=== PATIENT | female | born 1950 ===

== ENCOUNTER 2022-10-22 13:47 | Observation (INO) | payer MEDICARE, SELFPAY ==
[2022-10-22] VITALS (14 sets, daily range): BP systolic 110–151; BP diastolic 50–67; PULSE 89–130; RESP 16–25; TEMP 37; O2SAT 95–100
--- NOTE | ~2022-10-22 | CT_ITS ---
EXAMINATION: CT brain wo con DATE: 10/22/2022 17:21 INDICATION: 2 episodes of gradual vision loss. Weakness. TECHNIQUE: Computed tomography (CT) of the head was performed without intravenous contrast. The mA wa s adjusted according to patient size. Iterative reconstruction technique was employed. Exam dose: 60 5.33 mGy-cm total exam DLP. COMPARISON: None FINDINGS: No intracranial mass lesion or hemorrhage or recent cerebrovascular accident. There is prominent central and cortical cerebral atrophy. Prominent carotid siphon internal carotid artery calcifications. Bilateral vertebral artery calcifica tions. There is nonspecific diminished attenuation cerebral white matter, likely due to chronic small vessel ischemic changes. Chronic lacunar infarcts of the left basal ganglia and periventricular area. No subdural or epidural hematoma. No fracture or bone destruction of the cranial vault. The mastoid air cells and included paranasal si nuses are normally developed and aerated. IMPRESSION: Prominent central and cortical cerebral atrophy Cerebral atherosclerosis and chronic small vessel ischemic changes of cerebral white matter and chron ic lacunar infarcts of left basal ganglia and periventricular Reviewed, dictated and finalized at [facility]. Reviewed, dictated and finalized at [facility] IMPRESSION: Prominent central and cortical cerebral atrophy Cerebral atherosclerosis and chronic small vessel ischemic changes of cerebral white matter and chronic lacunar infarcts of left basal ganglia and periventric ular
--- NOTE | ~2022-10-22 | XR_ITS ---
XR chest 2V DATE: 10/22/2022 17:27 INDICATION: Syncope, weakness TECHNIQUE: AP and lateral views COMPARISON: None FINDINGS: Heart size is within normal range. Is aortic arch calcification. No hilar or mediastinal en largement. No pulmonary infiltrate or consolidation, pleural effusion or pulmonary vascular congestio n or pneumothorax. IMPRESSION: No active cardiopulmonary disease Reviewed, dictated and finalized at location [facility]. ERY PAIRER
--- NOTE | ~2022-10-22 | CT_ITS ---
EXAMINATION: CTA BRAIN/CAROTID DATE: 10/22/2022 19:34 INDICATION: Binocular painless vision loss TECHNIQUE: Computed tomographic angiography (CTA) of the head and neck was performed with 100 mL Omni paque-350 intravenous contrast. Multiplanar reconstructions and maximum intensity projection 3D-recon structions of the carotid arteries and of the intracranial arteries were created by the technologist on a separate workstation. Precontrast CT of the head was also obtained. Automated exposure control and iterative reconstruction technique were employed.The dose-length product was 3358.47 mGy-cm. COMPARISON: None. FINDINGS: Carotid arteries: Small amount of nonhemodynamically significant atherosclerotic plaque at the normal caliber or aortic arch and origin of the great vessels arising from the arch. There is 50% stenosis of the right carot id bulb relative to normal distal artery lumen diameter (NASCET criteria). There is 70% stenosis of t he left carotid bulb relative to normal distal artery lumen diameter. Small amount of nonhemodynamica lly significant atherosclerotic plaque at the origins of the bilateral vertebral arteries which are c odominant. The visualized cervical soft tissues and superior mediastinum are unremarkable. Mild perip heral septal line thickening which could be due to atelectasis or minimal pulmonary edema. 4 mm pleur al-based nodule at the periphery of the right upper lobe. Moderate lower cervical spondylosis. Intracranial arteries Extensive nonhemodynamically significant atherosclerotic plaque at the bilateral carotid siphons. Min imal atherosclerotic plaque at the intracranial right vertebral artery without significant stenosis. There is no hemodynamically significant stenosis in the vertebral, basilar and internal carotid arter ies. Vertebral arteries are codominant. There are no aneurysms identified. Both A1 and P1 segments a re patent. There appears be a tiny patent anterior communicating artery. Cerebral arterial arborizati on appears symmetric. No abnormally enhancing brain lesions. Small old lacunar infarcts at the left b kevin ganglia and left frontal lobe osborne radiata. Changes of bilateral intraocular lens replacement. IMPRESSION: 1. 70% stenosis of the right carotid bulb relative to normal distal artery lumen diameter (NASCET cri teria). 2. 50% stenosis of the left carotid bulb relative to normal distal artery lumen diameter. 3. No intracranial hemodynamically significant arterial stenosis or aneurysm. Reviewed, dictated and finalized at location [facility]. SUPERVISOR IMPRESSION: 1. 70% stenosis of the right carotid bulb relative to normal distal artery lume n diameter (NASCET criteria). 2. 50% stenosis of the left carotid bulb relative to normal distal artery lumen diameter. 3. No intracranial hemodynamically significant arterial stenosis or aneurysm.
--- NOTE | ~2022-10-22 | MR_ITS ---
EXAMINATION: MR brain/brain stem wo con DATE: 10/23/2022 08:16 INDICATION: Transient painless bilateral vision loss TECHNIQUE: Magnetic resonance imaging (MRI) of the brain and brainstem was performed without intraven ous contrast. Sequences included sagittal and axial T1-weighted SE, axial diffusion-weighted FS SE, a xial T2*-weighted GRE, axial 3D SWAN, axial T2-weighted FLAIR, and axial T2-weighted FSE. Apparent di ffusion coefficient (ADC) maps were created. COMPARISON: Head CT dated 10/22/2022 FINDINGS: Encephalomalacia consistent with small old infarct at the left basal ganglia involving the posterior lentiform nucleus and extending cephalad along the left frontal lobe osborne radiata. Additional small old infarct along a gyrus of the right parietal lobe. There are no areas of restricted diffusion to suggest acute infarction. No intracranial hemorrhage or abnormal intracranial mass lesion. There are scattered areas of nonspecific increased T2-weighted signal intensity in the cerebral white matter, p redominantly involving the deep and periventricular white matter. There are no intraparenchymal signa l abnormalities seen on the other pulse sequences. Symmetric prominence of the sulci consistent with mild age-appropriate diffuse cerebral volume loss. The ventricles are symmetric and normal in size. T here are no abnormal extra-axial fluid collections. Flow voids are seen in the cerebral arteries on t he T2-weighted sequences consistent with their expected patency. Changes of bilateral intraocular jonnie s replacement. Mild mucosal thickening the bilateral ethmoid sinuses. Small right mastoid effusion. IMPRESSION: 1. No acute infarct or other acute intracranial process. 2. Small old infarcts involving the left basal ganglia, left frontal lobe osborne radiata and a gyrus in the right parietal lobe. 3. Additional mild scattered white matter T2 hyperintensity which is within normal for age and consis tent with chronic small vessel ischemic disease. Reviewed, dictated and finalized at location [facility]. ERATIVE EDUCATION COORDINATOR IMPRESSION: 1. No acute infarct or other acute intracranial process. 2. Small old infarcts involving the left basal ganglia, left frontal lobe coron a radiata and a gyrus in the right parietal lobe. 3. Additional mild scattered white matter T2 hyperintensity which is within nor mal for age and consistent with chronic small vessel ischemic disease.
--- NOTE | 2022-10-22 14:00 | ECG_ITS ---
Measurements Intervals [place] Rate: 88 P: 32 [place]: 154 QRS: -31 QRSD: 91 T: 5 QT: 359 QTc: 436 Interpretive Statements SINUS RHYTHM BASELINE ARTIFACT LEFT AXIS DEVIATION VOLTAGE CRITERIA FOR LVH LOW-VOLTAGE QRS PERICARDIAL LEADS ABNORMAL ECG NO PREVIOUS ECG AVAILABLE FOR COMPARISON Electronically Signed On 10-24-2022 15:35:37 EMBOSSING MACHINE OPERATOR by David Peck M.D.
[2022-10-22 14:15] LABS: Basophils Absolute Auto 0.1 K/mm3 (0.0-0.1); Basophils Percent Auto 0.7 % (0.2-1.2); Eosinophils Percent Auto 0.1 % (0-4.4); Hemoglobin 9.8 g/dL (12.0-15.0); Immature Granulocyte Absolute 0.13 K/mm3 (0.00-0.031); Immature Granulocyte Percent A 0.9 % (0-0.5); Lymphocytes Absolute Auto 1.18 K/mm3 (0.9-3.2); Lymphocytes Percent Auto 8.6 % (18.3-44.2); Mean Corpuscular HGB Conc 30.6 g/dl (32-36); Mean Corpuscular Hemoglobin 30.7 pg (26-34); Mean Corpuscular Volume 100.3 fl (80-100); Mean Platelet Volume 8.6 fl (7.4-10.4); Monocytes Absolute Auto 0.5 K/mm3 (0.1-0.6); Monocytes Percent Auto 3.5 % (2.6-8.5); Neutrophils Absolute Auto 11.8 K/mm3 (1.3-6.7); Neutrophils Percent Auto 86.2 % (45.5-73.1); Platelet Count Result 702 k/mm3 (150-375); Red Blood Count 3.19 M/mm3 (4.2-5.4); Red Cell Distribution Width 15.5 % (11.5-14.5); White Blood Count 13.7 K/mm3 (4.5-10.0)
[2022-10-22 14:25] LABS: Alanine Aminotransferase 21 U/L (6-35); Albumin Level 4.3 g/dL (3.5-5.1); Alkaline Phosphatase 123 U/L (38-126); Anion Gap 8 mmol/L (8-16); Aspartate Amino Transferase 37 U/L (14-36); Bilirubin,Total 0.4 mg/dL (0.2-1.3); Blood Urea Nitrogen 50 mg/dL (7-17); Calcium 9.3 mg/dL (8.4-10.2); Carbon Dioxide 34 mmol/L (22-30); Chloride 95 mmol/L (98-107); Estimated CRCL calculation 36 ml/min; Estimated Glomerular Filt Rate 32; Glucose 185 mg/dL (65-110); Potassium 4.5 mmol/L (3.4-5.0); Sodium 137 mmol/L (137-145)
--- NOTE | 2022-10-22 17:10 | ED.DIZZY ---
HPI - Dizziness General Chief Complaint: Syncope <Sofiya Pitts PA-C - Last Filed: 10/23/22 02:55> Stated Complaint: syncopal episode <Sofiya Pitts PA-C - Last Filed: 10/23/22 02:55> Time Seen by Provider: 10/22/22 16:52 <Sofiya Pitts PA-C - Last Filed: 10/23/22 02:55> History of Present Illness HPI Narrative: Patient is a 72-year-old female with a history of COPD, PE, previous CVA sent here from her rehab facility for evaluation of binocular painless vision loss, lightheadedness and weakness. Patient states that she was standing doing therapy when she felt lightheaded and lost vision in both of her eyes gradually. Patient states that she sat down with improvement of the lightheadedness but the bilateral visual changes remained for about 30 minutes. Patient states that her symptoms went away after sitting for prolonged period of time. She had a similar episode 5 days ago. Denies syncope, head injury, unilateral weakness, chest pain. She is at the rehab facility currently due to leg weakness, pain and pulmonary embolism. She does have a history of previous stroke x 2. Currently on Eliquis, also being treated with steroids for COPD exacerbation. <Sofiya Pitts PA-C - Last Filed: 10/23/22 02:55> Related Data Home Medications: Home Medications Medication Instructions Recorded Confirmed Lactobacillus 1 cap PO DAILY 10/20/22 10/23/22 acidophilus-Bifidobac.animalis 2.5 billion cell capsule (Daily Probiotic) acetaminophen 325 mg tablet 325 mg PO BID PRN Pain 10/20/22 10/23/22 (Tylenol) clopidogrel 75 mg tablet 75 mg PO DAILY 10/20/22 10/23/22 diphenhydramine 25 2 tablet PO HS PRN Sleep 10/20/22 10/23/22 mg-acetaminophen 500 mg tablet (Tylenol PM Extra Strength) docusate sodium 100 mg capsule 100 mg PO DAILY 10/20/22 10/23/22 (Dulcolax Stool Softener (docusate)) furosemide 40 mg tablet 40 mg PO BID 10/20/22 10/23/22 levothyroxine 150 mcg tablet 150 mcg PO DAILY 10/20/22 10/23/22 methylprednisolone 4 mg tablet 8 mg PO DAILY PRN Pain 10/20/22 10/23/22 metolazone 2.5 mg tablet 2.5 mg PO DAILY 10/20/22 10/23/22 metoprolol succinate 25 mg 25 mg PO DAILY 10/20/22 10/23/22 tablet,extended release 24 hr multivitamin-ferrous 1 tablet PO DAILY 10/20/22 10/23/22 fumarate-folic acid 18 mg-400 mcg tablet ropinirole 0.5 mg tablet 0.5 mg PO BID 10/20/22 10/23/22 sacubitril 24 mg-valsartan 26 mg 0.5 tablet PO BID 10/20/22 10/23/22 tablet (Entresto) simvastatin 40 mg tablet 40 mg PO DAILY 10/20/22 10/23/22 gabapentin 100 mg capsule 100 mg PO TID 10/23/22 10/23/22 <Sofiya Pitts PA-C - Last Filed: 10/23/22 02:55> Allergies/Adverse Reactions: Allergies Allergy/AdvReac Type Severity Reaction Status Date / Time aspirin Allergy Other Verified 10/22/22 22:41 atorvastatin Allergy Muscle Verified 10/22/22 22:41 Spasms bumetanide Allergy Other Verified 10/22/22 22:41 celecoxib Allergy Other Verified 10/22/22 22:41 dexamethasone Allergy Other Verified 10/22/22 22:41 hydrochlorothiazide Allergy Other Verified 10/22/22 22:41 levofloxacin Allergy Hives Verified 10/22/22 22:41 meloxicam Allergy Other Verified 10/22/22 22:41 omeprazole Allergy Other Verified 10/22/22 22:41 Penicillins Allergy Hives Verified 10/22/22 22:41 prednisone Allergy Anaphylaxis Verified 10/22/22 22:41 torsemide Allergy Other Verified 10/22/22 22:41 acetaminophen [From Percocet] AdvReac Nausea and Verified 10/22/22 22:41 Vomiting benzonatate AdvReac Shakiness Verified 10/22/22 22:41 buspirone AdvReac Nausea and Verified 10/22/22 22:41 Vomiting doxycycline AdvReac Vomiting Verified 10/22/22 22:41 oxycodone [From Percocet] AdvReac Nausea and Verified 10/22/22 22:41 Vomiting procaine AdvReac Vomiting Verified 10/22/22 22:41 tetracycline AdvReac Nausea and Verified 10/22/22 22:41 Vomiting Tetracyclines AdvReac Vomiting Verified
[2022-10-22] MEDS: ALBUTEROL SULFATE NEB 2.5 MG/3 ML INH 5 MG INHALATION (17:26)
[2022-10-22] MEDS: SODIUM CHLORIDE 0.9% IV 1,000 ML 999 ML IV CONT (17:40)
[2022-10-22] MEDS: SODIUM CHLORIDE 0.9% IV 1,000 ML 100 ML IV CONT (23:00)
[2022-10-22 23:01] LABS: INR 1.9; Prothrombin Time 20.9 Seconds (11.1-14.7)
[2022-10-22 23:02] LABS: Partial Thromboplastin Time 34.7 SECONDS (22.3-36.8)
[2022-10-22 23:32] LABS: Influenza A QL RT-PCR Negative (Negative); Influenza B QL RT-PCR Negative (Negative); SARS-CoV-2 RNA PCR Negative
--- NOTE | 2022-10-22 23:38 | ADMGEN ---
This patient, Imelda Aleman, was admitted to 2 Medical Room 242-01. Patient/family oriented to hospital policies and general routines including ID bracelet, bed and alarms, visiting hours, pain management, procedures, bathroom and other care routines, personal items, smoking policy, room service/diet, and visiting hours. Information on how to activate the Rapid Response Team has been discussed. Patient/Family are encouraged to report perceived risks to care and to ask questions if they do not understand what they are told or what they should do.
[2022-10-23] VITALS (9 sets, daily range): BP systolic 109–130; BP diastolic 52–64; PULSE 80–86; RESP 16; TEMP 36.3–36.9; O2SAT 91–97; BMI 46.0
[2022-10-23] MEDS: LEVOTHYROXINE SODIUM 150 MCG TABLET PO (06:51)
[2022-10-23] MEDS: SACUBITRIL/VALSARTAN 12-13 MG TABLET 1 TAB PO ×2 (09:46→18:19)
[2022-10-23] MEDS: CLOPIDOGREL BISULFATE 75 MG TABLET PO (09:46)
[2022-10-23] MEDS: FUROSEMIDE 40 MG TABLET PO ×2 (09:47→18:19)
[2022-10-23] MEDS: MULTIVITAMINS /C LUTEIN (CENTRUM SILVER) TABLET *BKC 1 TAB PO (09:47)
[2022-10-23] MEDS: GABAPENTIN 100 MG CAPSULE PO ×2 (09:47→12:30)
[2022-10-23] MEDS: SIMVASTATIN 20 MG TABLET 40 MG PO (09:47)
[2022-10-23] MEDS: ACIDOPHILUS/BULGARICUS CHEWABLE TABLET 1 TABLET BY MOUTH (09:47)
[2022-10-23] MEDS: rOPINIRole HCL 0.5 MG TABLET PO ×2 (09:47→22:28)
[2022-10-23] MEDS: DOCUSATE SODIUM 100 MG CAPSULE PO (09:47)
[2022-10-23] MEDS: METOPROLOL SUCCINATE EXT REL 25 MG TABCR PO (09:47)
[2022-10-23] MEDS: ACETAMINOPHEN 325 MG TABLET 650 MG PO ×2 (09:49→22:27)
[2022-10-23] MEDS: metOLazone 2.5 MG TABLET PO (12:30)
--- NOTE | 2022-10-23 13:34 | PM.DS ---
DS: Admitting Diagnosis Discharge Date 10/23/2022 Admitting Diagnosis bilateral vision loss DS: Discharge Diagnosis Discharge Diagnosis (1) Binocular vision loss: Code(s): H54.3 - Unqualified visual loss, both eyes Status: Acute Assessment and Plan: ED-HPI Narrative: ? ? ? Patient is a 72-year-old female with a history of COPD, PE, previous CVA sent here from her rehab facility for evaluation of binocular painless vision loss, lightheadedness and weakness.? Patient states that she was standing doing therapy when she felt lightheaded and lost vision in both of her eyes gradually.? Patient states that she sat down with improvement of the lightheadedness but the bilateral visual changes remained for about 30 minutes.? Patient states that her symptoms went away after sitting for prolonged period of time.? She had a similar episode 5 days ago.? Denies syncope, head injury, unilateral weakness, chest pain.? She is at the rehab facility currently due to leg weakness, pain and pulmonary embolism.? She does have a history of previous stroke x 2.? Currently on Eliquis, also being treated with steroids for COPD exacerbation patient with history of CVA, and PE now presents with B/L vision loss to further evaluate will do CtA of head and neck as well as MRI of brain, will have PT OT evaluate the and further recommendation to follow. (2) Diabetes mellitus: Code(s): E11.9 - Type 2 diabetes mellitus without complications Status: Acute Assessment and Plan: will continue home regimen and monitor with sliding scale (3) Acute kidney injury superimposed on chronic kidney disease: Code(s): N17.9 - Acute kidney failure, unspecified; N18.9 - Chronic kidney disease, unspecified Status: Acute Assessment and Plan: patient on acute on chronic kidney disease will monitor kidney function DS: Summary Hospital Course Reason for hospitalization: ED-HPI Narrative: ? ? ? Patient is a 72-year-old female with a history of COPD, PE, previous CVA sent here from her rehab facility for evaluation of binocular painless vision loss, lightheadedness and weakness.? Patient states that she was standing doing therapy when she felt lightheaded and lost vision in both of her eyes gradually.? Patient states that she sat down with improvement of the lightheadedness but the bilateral visual changes remained for about 30 minutes.? Patient states that her symptoms went away after sitting for prolonged period of time.? She had a similar episode 5 days ago.? Denies syncope, head injury, unilateral weakness, chest pain.? She is at the rehab facility currently due to leg weakness, pain and pulmonary embolism.? She does have a history of previous stroke x 2.? Currently on Eliquis, also being treated with steroids for COPD exacerbation patient with history of CVA, and PE now presents with B/L vision loss to further evaluate will do CtA of head and neck as well as MRI of brain, will have PT OT evaluate the and further recommendation to follow. Hospital Course: patient presented with a bilateral vision loss, CTA of the head showed 1. 70% stenosis of the right carotid bulb relative to normal distal artery lumen diameter (NASCET criteria). 2. 50% stenosis of the left carotid bulb relative to normal distal artery lumen diameter. 3. No intracranial hemodynamically significant arterial stenosis or aneurysm. patient remains clinically stable symptoms have resolved to further evaluate patient had MRI of the brain did not show any acute infarct or other acute intracranial process. patient remains clinically stable and been participating in physical therapy her symptoms have resolved most likely patient had a TIA, will discharge the patient back to the rehab and patient will follow-up with her Neurologist. Time Spent with Patient Time attestation: Total time spent providing and/or coordinating discharge services: Exam Narrative: morbidly obese
--- NOTE | 2022-11-18 18:18 | PM.IMHP ---
H&P: HPI History of Present Illness Date/Time: 10/23/2022 Chief Complaint: B/L vision loss Narrative: ED-HPI Narrative: ? ? ? Patient is a 72-year-old female with a history of COPD, PE, previous CVA sent here from her rehab facility for evaluation of binocular painless vision loss, lightheadedness and weakness.? Patient states that she was standing doing therapy when she felt lightheaded and lost vision in both of her eyes gradually.? Patient states that she sat down with improvement of the lightheadedness but the bilateral visual changes remained for about 30 minutes.? Patient states that her symptoms went away after sitting for prolonged period of time.? She had a similar episode 5 days ago.? Denies syncope, head injury, unilateral weakness, chest pain.? She is at the rehab facility currently due to leg weakness, pain and pulmonary embolism.? She does have a history of previous stroke x 2.? Currently on Eliquis, also being treated with steroids for COPD exacerbation patient with history of CVA, and PE now presents with B/L vision loss to further evaluate will do CtA of head and neck as well as MRI of brain, will have PT OT evaluate the and further recommendation to follow. patient is admitted as observation status Review of Systems Review of Systems: Gen.: Denies fevers or chills Eyes: Reports transient vision loss. Denies eye pain ENT: Denies congestion Respiratory: Denies shortness of breath or cough CV: Denies chest pain or palpitations GI: Denies abdominal pain nausea, emesis or diarrhea denies burning, urgency, frequency or hematuria Musculoskeletal: Denies back pain or muscle pain Neuro: Denies numbness, tingling, weakness or focal weakness Skin: Denies rash Except as documented, all other systems reviewed and negative [facility] Past Medical History Medical History Acute kidney injury superimposed on chronic kidney disease Acute on chronic diastolic (congestive) heart failure Acute respiratory failure Cellulitis of right lower extremity COPD (chronic obstructive pulmonary disease) Diabetes mellitus Gout of right knee Hyperlipidemia Hypertension Hypothyroidism Macrocytic anemia Pulmonary embolism Family History Family History Mother Alzheimer disease Hypertension Hyperlipemia Heart disease Father Heart disease Memory loss Cerebrovascular accident Social History Social History Smoking packs per day: 1 Smoking cigarettes per day: 20.0 Years smoked: 54 Smoking pack-years: 54.00 Smoking status: Former smoker Tobacco type: cigarettes Alcohol intake: current Drinks per week: 1 Substance use: never Lack of Transportation: No Lack of Food: Never True Current Housing: I Have Housing Concerned About Future Housing: No Difficulty Paying Gas/Electric Bills: No Difficulty Paying for Meds: No Currently Unemployed: No Education: Associate Degree Difficulty w/ Childcare or Family Care: No Spiritual care concerns: No Meds Home Medications and Allergies Home Medications Medication Instructions Recorded Confirmed Type Lactobacillus 1 cap PO DAILY 10/20/22 10/23/22 History acidophilus-Bifidobac.animalis 2.5 billion cell capsule (Daily Probiotic) acetaminophen 325 mg tablet 325 mg PO BID PRN Pain 10/20/22 10/23/22 History (Tylenol) clopidogrel 75 mg tablet 75 mg PO DAILY 10/20/22 10/23/22 History diphenhydramine 25 2 tablet PO HS PRN Sleep 10/20/22 10/23/22 History mg-acetaminophen 500 mg tablet (Tylenol PM Extra Strength) docusate sodium 100 mg capsule 100 mg PO DAILY 10/20/22 10/23/22 History (Dulcolax Stool Softener (docusate)) furosemide 40 mg tablet 40 mg PO BID 10/20/22 10/23/22 History levothyroxine 150 mcg tablet 150 mcg PO DAILY 10/20/22 10/23/22 History
== END 2022-10-23 23:56 ==
LOC: ANHED 18:20 → ANH2MED 10-23 00:29
PROVIDERS: Physician Assistant; Admitting Provider Internal Medicine; Emergency Provider Emergency Medicine; PCP Internal Medicine; Visit Provider Family Medicine
DX: H54.3 Unqualified visual loss, both eyes (principal); I13.0 Hypertensive heart and chronic kidney disease with heart failure and stage 1 through stage 4 chronic kidney disease, or unspecified chronic kidney disease; N18.9 Chronic kidney disease, unspecified; E11.22 Type 2 diabetes mellitus with diabetic chronic kidney disease; I50.33 Acute on chronic diastolic (congestive) heart failure; N17.9 Acute kidney failure, unspecified; E66.01 Morbid (severe) obesity due to excess calories; Z68.42 Body mass index [BMI] 45.0-49.9, adult; R55 Syncope and collapse; R53.1 Weakness; R42 Dizziness and giddiness; J44.1 Chronic obstructive pulmonary disease with (acute) exacerbation; Z20.822 Contact with and (suspected) exposure to COVID-19; R94.31 Abnormal electrocardiogram [ECG] [EKG]; I67.2 Cerebral atherosclerosis; I70.8 Atherosclerosis of other arteries; R90.82 White matter disease, unspecified; E03.9 Hypothyroidism, unspecified; J96.00 Acute respiratory failure, unspecified whether with hypoxia or hypercapnia; E78.5 Hyperlipidemia, unspecified; D53.9 Nutritional anemia, unspecified; M10.9 Gout, unspecified; F10.90 Alcohol use, unspecified, uncomplicated; Z87.891 Personal history of nicotine dependence; Z86.711 Personal history of pulmonary embolism; Z86.73 Personal history of transient ischemic attack (TIA), and cerebral infarction without residual deficits; Z79.1 Long term (current) use of non-steroidal anti-inflammatories (NSAID); Z79.01 Long term (current) use of anticoagulants; Z79.899 Other long term (current) drug therapy
CPT/HCPCS: 36415; 70450; 70496; 70498; 70551; 71046; 80053; 85025; 85610; 85730; 87636; 93005; 94640; 96360; 96361; 99285; A9270; G0378; J7030; Q9967